=== PATIENT | male | born 1965 | race African-American/Black ===

== ENCOUNTER 2018-05-05 19:34 | Emergency (ER) | payer SELFPAY ==
[~2018-05-05] VITALS: Ht 172.7 cm; Wt 115.7 kg
[2018-05-05 19:42] VITALS: BP 163/78
--- NOTE | 2018-05-05 19:49 | PHYS DOC ---
Adult General Chief Complaint Chief Complaint: FLU SYMPTOM HPI HPI Patient is a 53 year old male who presents with 2 weeks of fever, body aches, cough is nonproductive bilateral rib pain from coughing and runny nose. Review of Systems Review of Systems Constitutional: Denies fever or chills [] Eyes: Denies change in visual acuity, redness, or eye pain [] HENT: nasal congestion. Denies sore throat [] Respiratory: cough. Denies shortness of breath [] Cardiovascular: No additional information not addressed in HPI [] GI: Denies abdominal pain, nausea, vomiting, bloody stools or diarrhea [] : Denies dysuria or hematuria [] Musculoskeletal: Denies back pain or joint pain [] Integument: Denies rash or skin lesions [] Neurologic: Denies headache, focal weakness or sensory changes [] All other systems were reviewed and found to be within normal limits, except as documented in this note. Physical Exam Physical Exam Constitutional: Well developed, well nourished, no acute distress, non-toxic appearance. [] HENT: Normocephalic, atraumatic, bilateral external ears normal, oropharynx moist, no oral exudates, nose normal. Throat reddened without exudates.[] Eyes: PERRLA, EOMI, conjunctiva normal, no discharge. [] Neck: Normal range of motion, no tenderness, supple, no stridor. [] Cardiovascular:Heart rate regular rhythm, no murmur [] Lungs & Thorax: Bilateral upper lobes are clear but lower lobes are diminished. Abdomen: Bowel sounds normal, soft, no tenderness, no masses, no pulsatile masses. [] Skin: Warm, dry, no erythema, no rash. [] Back: No tenderness, no CVA tenderness. [] Extremities: No tenderness, no cyanosis, no clubbing, ROM intact, no edema. [] Neurologic: Alert and oriented X 3, normal motor function, normal sensory function, no focal deficits noted. [] Psychologic: Affect normal, judgement normal, mood normal. [] Current Patient Data Vital Signs Vital Signs Date Time Temp Pulse Resp B/P (MAP) Pulse Ox O2 Delivery O2 Flow Rate FiO2 05/05/18 19:42 99.0 77 20 163/78 (106) 99 Room Air 99.0 Lab Values Laboratory Tests Test 05/05/18 19:50 Influenza Type A Antigen Negative (NEGATIVE) Influenza Type B Antigen Negative (NEGATIVE) EKG EKG [] Radiology/Procedures Radiology/Procedures Chest x-ray Course & Med Decision Making Course & Med Decision Making Patient is a 53 year old male who presents with 2 weeks of fever, body aches, cough is nonproductive bilateral rib pain from coughing and runny nose. Lungs are clear bilaterally in upper lobes but lower lobes are diminished. States he is not coughing up any mucus. Alert and oriented. Skin pink warm and dry. He is eating and drinking appropriately. He denies abdominal pain, nausea, vomiting, dizziness, head pain. Walks with steady gait. Speaks in full clear sentences. Abdomen is soft and non tender. Throat is reddened and with no exudates. Denies throat pain or ear pain. Patient has no extremity edema and denies chest pain or soa. Temperature in ED is 99 0, 97% on room air, 77 heart rate. Preliminary xray shows possible pneumonia and was read by Dr Oliva. Patient will be treat with a z pack and cough medications. Patient to follow up with primary care. Dragon Disclaimer Dragon Disclaimer This electronic medical record was generated, in whole or in part, using a voice recognition dictation system. Departure Departure Impression: Primary Impression: Respiratory infection Disposition: 01 HOME, SELF-CARE Condition: STABLE Referrals: MARIA ONOFRE MD (PCP) Patient Instructions: Pneumonia, Adult Additional Instructions: Follow-up with primary care doctor. Take medications as prescribed. Drink plenty of fluids. Scripts Benzonatate (TESSALON PERLE) 100 Mg Capsule 1 CAP PO TID, #30 CAP Prov: PRISCILLA DE SANTIAGO STOCKHOLDER 05/05/18 Azithromycin (AZITHROMYCIN TABLET) 250 Mg Tablet 1 PKG PO UD, #6 TAB Prov: PRISCILLA DE SANTIAGO STOCKHOLDER 05/05/18 PRISCILLA DE SANTIAGO STOCKHOLDER May 05, 2018 19:49
[2018-05-05 20:22] LABS: INFLUENZA A PATIENT NEGATIVE (NEGATIVE); INFLUENZA B PATIENT NEGATIVE (NEGATIVE)
[2018-05-05] MEDS ORDERED: AZIT250T6 PO (20:37)
[2018-05-05] MEDS ORDERED: BENZ100C PO (20:37)
--- NOTE | 2018-05-05 23:41 | RAD ---
INDICATION: ER PATIENT. COUGH, FEVER. X3 WEEKS. Hx ASTHMA, PE, DVT. NO PRIORS COMPARISON: None FINDINGS: 2 views of chest obtained. Mild interstitial prominence with questionable haziness at the retrocardiac region. Degenerative changes the spine with osteophyte formation. Cardiac mediastinal silhouette prominent in size. IMPRESSION: 1. Mild haziness at the retrocardiac region. This could be secondary to a region of atelectasis however if there is high concern for infection early infiltrate can have this appearance. Electronically signed by: Sigifredo Coates MD (05/05/2018 11:37 PM) [facility]
== END 2018-05-05 20:46 | disposition home or self-care (01) ==
LOC: ER 19:40
DX: J98.8 Other specified respiratory disorders (principal)
CPT/HCPCS: 71046; 87804; 99284